=== PATIENT | female | born 1955 | race Caucasian/White ===

== ENCOUNTER 2020-06-11 19:24 | Emergency (ER) | payer BC ==
[2020-06-11 19:31] VITALS: BP 151/108; PULSE 83; TEMP 98.8; BMI 26.4
[2020-06-11] MEDS ORDERED: IBUPROFEN 600 MG TABLET (FP) PO ONE ×2 (19:40→19:43)
[2020-06-11] MEDS ORDERED: DIPHTH,PERTUSS(ACELL),TET 0.5 ML DISP.SYRIN IM ONE ×2 (19:40→19:43)
[2020-06-11] MEDS ORDERED: AMOX TR/POT CLAV 500MG/125MG TABLETS (FP) ONE (20:05)
== END 2020-06-11 20:28 | disposition home or self-care (01) ==
LOC: FER 19:24
PROC: 3E0234Z Introduction of Serum, Toxoid and Vaccine into Muscle, Percutaneous Approach (ICD-10-PCS; principal; 2020-06-11)
DX: S02.2XXA Fracture of nasal bones, initial encounter for closed fracture (principal)
CPT/HCPCS: 70160-TC-FY; 90715; 99284-25